=== PATIENT | female | born 2005 | race Caucasian/White ===

== ENCOUNTER 2023-01-19 16:11 | Outpatient (REF) | payer OTHER, SELFPAY ==
[2023-01-19 15:20] LABS: Abs Immature Grans 0.02 10^3/uL (0.0-0.06); Absolute Basophil Count 0.06 10^3/uL (0.0-0.2); Absolute Eosinophil Count 0.16 10^3/uL (0.0-0.7); Absolute Lymphocyte Count 4.25 10^3/uL (1.2-3.4); Absolute Monocyte Count 0.75 10^3/uL (0.1-0.8); Absolute Neutrophil Count 6.31 10^3/uL (1.2-6.7); Basophils % 0.5; Eosinophils % 1.4; HCT 47.8 % (36.0-46.0); HGB 14.7 g/dL (11.2-15.7); Immature Grans % 0.2; Lymphocytes % 36.8; MCH 25.4 pg (27.0-33.0); MCHC 30.8 % (32.0-36.0); MCV 83 fL (80-95); MPV 11.9 fL (8.0-11.0); Monocytes % 6.5; Neutrophils % 54.6; Platelet Count 402 10^3/uL (130-400); RBC 5.78 10^6/uL (3.93-5.22); RDW 14.3 % (11.7-14.6); WBC 11.55 10^3/uL (4.4-10.8)
[2023-01-19 15:31] LABS: ALT 24 U/L (14-59); AST 24 U/L (15-37); Albumin 4.1 g/dL (3.4-5.0); Alkaline Phosphatase 155 U/L (46-116); Anion Gap 9.5 mmol/L (3-11); BUN 12 mg/dL (7-18); Bilirubin, Total 0.2 mg/dL (0.2-1.0); CO2 27.5 mmol/L (21.0-32.0); CREATININE 1.1 mg/dL (0.55-1.02); Calcium 9.7 mg/dL (8.5-10.1); Calculated LDL 112 mg/dL (<100); Chloride 103 mmol/L (98-107); Cholesterol 184 mg/dL (<200); Estimated GFR 74.23 (mL/min/1.73m2); Glucose 81 mg/dL (74-106); HDL Cholesterol 41 mg/dL (40-60); Potassium 4.2 mmol/L (3.5-5.1); Sodium 140 mmol/L (136-145); Total Protein 8.3 g/dL (6.4-8.2); Triglyceride 158 mg/dL (<150)
[2023-01-19 15:45] LABS: Hemoglobin A1C 5.4 % (<5.7)
== END 2023-01-19 16:12 | disposition home or self-care (01) ==
LOC: NCHCN 16:11
PROVIDERS: Visit Provider Registered Nurse
DX: Z00.00 Encounter for general adult medical examination without abnormal findings (principal); Z02.89 Encounter for other administrative examinations; Z83.3 Family history of diabetes mellitus; E66.09 Other obesity due to excess calories
CPT/HCPCS: 80053; 80061; 83036; 85025